=== PATIENT | female | born 1970 | race Caucasian/White ===

== ENCOUNTER 2023-01-07 19:28 | Inpatient (IN) | payer MEDICARE, OTHER, SELFPAY ==
[2023-01-07 19:49] VITALS: BP 116/81; PULSE 84; RESP 18; TEMP 36.6; O2SAT 94
[2023-01-07 20:26] VITALS: BMI 20.5
--- NOTE | 2023-01-07 20:45 | PC.NURSE ---
Pt arrived to [facility] at approximately 1917 from [facility] where she was brought for being extemely depressed and having thoughts of killing herself. It was reported by her that she had taken out $1000 beverly, obtained an Uber taxi driver supervisor to taxi driver supervisor her somewhere where she could kill herself by OD on medications. Upon admission to this facility patient states that she had intended to kill herself with her gun, however he removed the firearms so she went to a gun shop to buy another firearm but that failed because she would have to wait three days to get the firearm. She states that her notified the police and then she was brought to the ER for admission.
[2023-01-07] MEDS: metoprolol tartrate 50 mg Tablet PO (21:53)
[2023-01-07] MEDS: FUROsemide 20 mg Tablet PO (21:53)
[2023-01-07] MEDS: LORazepam 2 mg Tablet PO (21:54)
[2023-01-07 22:00] VITALS: BP 116/81; PULSE 84; RESP 18; TEMP 36.6; O2SAT 94
[2023-01-08 06:00] VITALS: BP 105/69; PULSE 97; RESP 16; O2SAT 98
[2023-01-08] MEDS: levothyroxine 100 mcg Tablet PO (06:14)
[2023-01-08] MEDS: venlafaxine ER (24HR) 75 mg Capsule PO (08:25)
[2023-01-08] MEDS: multivitamin therapeutic Tablet 1 TAB PO (08:25)
[2023-01-08] MEDS: spironolactone 25 mg Tablet PO (08:25)
[2023-01-08] MEDS: potassium chloride ER 20 mEq Tablet PO (08:25)
[2023-01-08] MEDS: thiamine 100 mg Tablet PO (08:25)
[2023-01-08] MEDS: folic acid 1 mg Tablet PO (08:25)
[2023-01-08] MEDS: FUROsemide 20 mg Tablet PO ×2 (08:28→15:39)
--- NOTE | 2023-01-08 13:51 | W.PM.NPUH&PS ---
Providers/Chief Complaint Admitting Physician: James Pruitt MD Chief Complaint: SI HPI NPU History of Present Illness Yoselin Tafoya is a 52 year old white female who presents to the [facility] in [facility] with suicidal ideation. Patient had reported having thoughts of killing herself to her . She had been admitted to the neuropsychiatric unit for further evaluation and treatment after transfer from [facility]. The patient had reported that she had many family members over including her daughter over the and she reports that she had been more stressed by her situation. She had admitted to her that she wanted to harm herself and this had prompted her to hide all of the firearms in their home. The patient had on 01/06/2023 with drawn $1000 from her account with intentions of paying a Uber straddle bug driver to drop her off in a desolate area where she could go and end her life. The patient had admitted that she had gone as far as having an Uber straddle bug driver take her to a place to purchase a gun but the patient reports that there was a 3-day waiting limit on obtaining the gun and she was unable to complete her planned. Patient was then dropped off at home and patient states that the Uber straddle bug driver had succeeding in because calling the authorities to inform them of the concern over Yoselin's behavior. The patient reports that she has had problems with chronic anxiety for several years. She has been described as having difficulty with managing her constant worry. She reports that she frequently has tension and often has difficulties with falling asleep. She reports that she has used alcohol to manage her worry for several years. She describes drinking approximately 1 bottle of wine on a daily basis for 30 years and states that she has had no change in tolerance and minimizes any history of withdrawal symptoms. She has endorsed having some adverse consequences associated with her drinking including elevated liver function test and difficulties with managing stress at home. She does endorse some feelings of hopelessness. She had minimized any history of significant alcohol withdrawal symptoms despite having daily alcohol use. She had also reported that she had obtained 9 hydrocodone pills with the attempt to use the those pills with her alcohol with the intention to take her life. The patient endorses no history of panic attacks currently but reports that she frequently finds things to worry about and feels that her worry is out of control. She has endorsed a history of depressed mood but reports that she had not been feeling suicidal until these past few days. She reports that in the past when she has been depressed she tends to feel tired all of the time and has difficulties with feeling hopeless and reports sleep continuity disruption as well. She denied any clear history of lennox. She did not endorse any history of psychosis. She denies any illicit drug use currently. Patient reports that the longest period of time she has been sober off of alcohol was 4 approximately 6 weeks when she had been initially diagnosed with congestive heart failure and been warned about the use of alcohol in order to stop use of alcohol several years ago. Inpatient psychiatric history: None reported Outpatient psychiatric history none reported in regards to psychotherapy or follow-up with a psychiatrist. She had reported no previous trials on antidepressants or antianxiety medications other than Effexor. Drug and alcohol history: She has no history of inpatient or outpatient treatment for substance use. She had endorsed a history of misuse of benzodiazepines prescribed to her in the past stating that she enjoyed the presence of those medicines and the effect it had on her body. She also reported history of opiate withdrawal after she had missed used opiates in the past to manage pain. Again she reports daily alcohol use for 30 years but states having a relatively low tolerance while reporting that she can drink a bottle of wine without any issues. Allergies: No known drug allergies Current medications: Metoprolol 25 mg twice a day, furosemide 20 mg twice a day, spironolactone 25 mg daily, aspirin 81 mg daily, lisinopril 2.5 mg daily, potassium chloride 20 mEq daily, Topamax 25 mg daily, levothyroxine 75 mcg daily, Effexor XR 75 mg daily, magnesium oxide 400 mg daily, pantoprazole 40 mg daily Medical History: Congestive heart failure, celiac disease, hypothyroidismccc Surgical history: None Family psychiatric history: None reported Social history: Patient reports that she was born in [facility] and raised by her biological parents who when the patient was 8 years old. She reports that she then lived with her mother and her maternal grandmother in [place]. She had reported some emotional trauma from managing her childhood poverty. She had stated that she had graduated high school and had previously been successful in the business industry. She reports having 2 children ages 21 and 24 with her 21-year-old son living at home and her 24-year-old daughter living outside of the home. She reports she has been for 29 years and this is her first marriage. She reports living in the [facility] and is currently on disability for her congestive heart failure and has not worked in several years. She reported no history of legal problems. Meds NPU Home Medications Medication Instructions Recorded Confirmed Last Taken Type furosemide 20 mg tablet 20 mg PO 2XD 01/07/23 01/07/23 Unknown History levothyroxine 100 mcg tablet 100 mcg PO QAM 01/07/23 01/07/23 Unknown History lisinopril 5 mg tablet (Zestril) 5 mg PO DAILY 01/07/23 01/07/23 Unknown History metoprolol tartrate 50 mg tablet 50 mg PO 2XD 01/07/23 01/07/23 Unknown History potassium chloride 20 mEq 20 meq PO DAILY 01/07/23 01/07/23 Unknown History tablet,extended release(part/cryst) (Klor-Con M) spironolactone 25 mg tablet 25 mg PO DAILY 01/07/23 01/07/23 Unknown History venlafaxine 75 mg capsule,extended 75 mg PO DAILY 01/07/23 01/07/23 Unknown History release 24 hr Allergies Allergy/AdvReac Type Severity Reaction Status Date / Time No Known Allergies Allergy Verified 01/07/23 19:57 Mental Status Exam MSE Comments: She is a casually dressed healthy white female who appeared with fair hygiene and good eye contact on interview. She was a good historian. She was alert and oriented to person place time and situation. Her speech was normal in regards to rate rhythm and prosody. There is no evidence of any abnormal involuntary motor movements tics or tremors appreciated. Her mood was described as depressed and anxious. Her affect was restricted in range and mood-congruent. Her thought process was linear logical and goal-directed. Her thought content showed evidence of suicidal ideation with a plan to use a gun. She denied any homicidal ideation. She did not appear to be responding to internal stimuli. There is no clear evidence of delusional thinking. Her insight is poor. Her judgment is limited. Her impulse control appeared poor as well. Vitals/I&O/Wt Last Vital Signs Temp 97.8 F 01/07/23 22:00 Pulse 97 01/08/23 06:00 Resp 16 01/08/23 06:00 BP 105/69 01/08/23 06:00 Pulse Ox 98 01/08/23 06:00 O2 Del Method Room Air 01/08/23 06:00 Weight last 48 hrs Weight 51.313 kg Weight 50.8 kg A&P Assessment and plan (1) Major depressive disorder, recurrent: (2) Alcohol dependence: (3) ZORAIDA (generalized anxiety disorder): Plan 52-year-old white female with a history of alcohol abuse for 30 years admitted with suicidal ideation and symptoms suggestive of generalized anxiety disorder and depression currently on Effexor XR. 1. Encourage individual, group and milieu therapy. 2. Recommend sober living treatment at the highest level of care to which the patient is willing to commit. 3. Continue q-15 minute checks for safety.? 4.? Restart current medications. 5.? Increase Effexor XR 112.5mg to target anxiety and depression 6. CIWA protocol. Involuntary Hold Information 96 Hour Hold: 96 Hour Involuntary Admission: No Attestations NPU Medical Necessity Statement*: Inpatient hospitalization is medically necessary and deemed to ?be ?the clinically appropriate intervention ?at this time.? We will monitor/initiate medications and make changes as indicated.? The patient will be in the hospital for over 2 midnights.? The patient?s likely length of stay 4-6 days. Coding Level of Care Code Acute Code for Chg Fwd Diagnoses Major depressive disorder, recurrent F33.9 Alcohol dependence F10.20 ZORAIDA (generalized anxiety disorder) F41.1
[2023-01-08 14:00] VITALS: BP 109/76; PULSE 144; RESP 16; TEMP 36.6; O2SAT 96
[2023-01-08] MEDS: metoprolol tartrate 50 mg Tablet PO (18:06)
[2023-01-08] MEDS: trazodone 50 mg Tablet PO (21:03)
[2023-01-08 22:00] VITALS: BP 109/80; PULSE 83; RESP 18; TEMP 36.4; O2SAT 96
[2023-01-09 06:00] VITALS: BP 91/56; PULSE 96; RESP 16; O2SAT 94
[2023-01-09] MEDS: levothyroxine 100 mcg Tablet PO (06:08)
--- NOTE | 2023-01-09 07:44 | PC.NURSE ---
PT REPORTS NO BM SINCE MONDAY NEW ORDERS RECEIVED TO START SENNA S 1 TAB PO BID PRN CONSTIPATION. PT EDUCATED ON MEDICATIONS. VERBALIZED UNDERSTANDING.
[2023-01-09] MEDS: spironolactone 25 mg Tablet PO (08:22)
[2023-01-09] MEDS: multivitamin therapeutic Tablet 1 TAB PO (08:22)
[2023-01-09] MEDS: folic acid 1 mg Tablet PO (08:22)
[2023-01-09] MEDS: metoprolol tartrate 50 mg Tablet PO (08:22)
[2023-01-09] MEDS: venlafaxine ER (24HR) 37.5 mg Capsule 112.5 MG PO (08:22)
[2023-01-09] MEDS: thiamine 100 mg Tablet PO (08:22)
[2023-01-09] MEDS: lisinopril 5 mg Tablet PO (08:22)
[2023-01-09] MEDS: potassium chloride ER 20 mEq Tablet PO (08:22)
[2023-01-09] MEDS: hyDROXYzine 25 mg Capsule 50 MG PO (08:26)
[2023-01-09] MEDS: sennosides-docusate Tablet 1 TAB PO (08:26)
[2023-01-09] MEDS: ibuprofen 600 mg Tablet PO (08:27)
--- NOTE | 2023-01-09 08:51 | PC.NURSE ---
PT UP AT [facility] REQUESTING BOX TO BRUSH HER TEETH. BOX WAS GIVEN TO PT REQUESTED. PT DENIES PAIN, DENIES SI/HI AND AVH AT THIS TIME. REPORTS ANXIETY 5/10 AND DEPRESSION 3/10. PT WAS ADMINISTERED VISTARIL 50 MG ORDERED FOR ANXIETY. PT REPORTS SHE HAS NOT HAD A BM FOR 5 DAYS, SENNA S 1 TAB WAS GIVEN ORDERED. PT EDUCATED TO LET STAFF KNOW WHEN SHE HAS A BM, OR IF SHE DOES NOT SHE CAN TAKE ANOTHER SENNA S. PT VERBALIZED UNDERSTANDING. PT SCORED 0 ON CIWA, PT DENIES ALL SYMPTOMS OF ALCOHOL WITHDRAW EXCEPT FOR ANXIETY. ALL QUESTIONS WERE ANSWERED AND SUPPORT WAS VOICED.
[2023-01-09] MEDS: FUROsemide 20 mg Tablet PO ×2 (10:03→15:45)
[2023-01-09 14:00] VITALS: BP 90/58; PULSE 79; RESP 16; TEMP 36.4; O2SAT 96
--- NOTE | 2023-01-09 18:01 | W.PM.NPUPNS ---
Subjective NPU Subjective: patient is a 52-year-old white female with a history of alcohol dependence and generalized anxiety disorder along with major depressive disorder admitted with suicidal ideation with a plan to use a gun. Patient had reported continued depressed mood at this time. She had stated that she had been acutely stressed over the holidays and stated that she continued to struggle with excessive worry. She had reported that she had needed help for managing her depression and low self-esteem. She had endorsed periods of hopelessness and stated that she had difficulties with coping with her anxiety. She reported that she may have harmed herself if she had had access to a gun as she had stated that she had had an Uber jeep driver prepared to drive her to an remote area in order to shoot herself with a gun. The patient had reported some cravings for alcohol. She reports that the longest period of sobriety from her alcohol use was 6 months when she had been diagnosed with congestive heart failure. She had reported that she had minimized her alcohol consumption to her physicians in the past Mental Status Exam MSE Comments: She is a casually dressed healthy white female who appeared with fair hygiene and good eye contact on interview. She was a good historian. She was alert and oriented to person place time and situation. Her speech was normal in regards to rate rhythm and prosody. There is no evidence of any abnormal involuntary motor movements tics or tremors appreciated. Her mood Was described as depressed. Her affect Remained restricted in range and mood-congruent. Her thought process was linear logical and goal-directed. Her thought content showed evidence of suicidal ideation with a plan to use a gun. She denied any homicidal ideation. She did not appear to be responding to internal stimuli. There is no clear evidence of delusional thinking. Her insight is poor. Her judgment is limited. Her impulse control appeared poor as well. Vitals/I&O/Wt Last Vital Signs Temp 97.5 F L 01/09/23 14:00 Pulse 79 01/09/23 14:00 Resp 16 01/09/23 14:00 BP 90/58 01/09/23 14:00 Pulse Ox 96 01/09/23 14:00 O2 Del Method Room Air 01/08/23 14:00 Weight last 48 hrs Weight 51.313 kg Weight 50.8 kg A&P Assessment and plan (1) Major depressive disorder, recurrent: (2) Alcohol dependence: (3) ZORAIDA (generalized anxiety disorder): Plan 52-year-old white female with a history of alcohol abuse for 30 years admitted with suicidal ideation and symptoms suggestive of generalized anxiety disorder and depression currently on Effexor XR. 1. Encourage individual, group and milieu therapy. 2. Recommend sober living treatment at the highest level of care to which the patient is willing to commit. 3. Continue q-15 minute checks for safety.? 4.? Restart current medications. 5.? Increase Effexor XR 150mg to target anxiety and depression. Add Naltrexone oral 50mg to target alcohol cravings with plan to consider Vivitrol IM to target alcohol dependence. 6. CILA protocol. Involuntary Hold Information 96 Hour Hold: 96 Hour Involuntary Admission: No Attestations NPU Medical Necessity Statement*: Inpatient hospitalization is medically necessary and deemed to ?be ?the clinically appropriate intervention ?at this time.? We will monitor/initiate medications and make changes as indicated.?The patient?s likely length of stay 4-6 days. Coding Level of Care Code Acute Code for [facility] Fwd Diagnoses Major depressive disorder, recurrent F33.9 Alcohol dependence F10.20 ZORAIDA (generalized anxiety disorder) F41.1
[2023-01-09] MEDS: trazodone 50 mg Tablet PO (20:07)
[2023-01-09 20:37] VITALS: BP 89/55; PULSE 69; RESP 17; TEMP 36.3; O2SAT 98
[2023-01-10] MEDS: folic acid 1 mg Tablet PO (09:05)
[2023-01-10] MEDS: FUROsemide 20 mg Tablet PO ×2 (09:05→15:41)
[2023-01-10] MEDS: naltrexone hcl 50 mg Tablet PO (09:05)
[2023-01-10] MEDS: venlafaxine ER (24HR) 150 mg Capsule PO (09:06)
[2023-01-10] MEDS: spironolactone 25 mg Tablet PO (09:06)
[2023-01-10] MEDS: multivitamin therapeutic Tablet 1 TAB PO (09:06)
[2023-01-10] MEDS: thiamine 100 mg Tablet PO (09:06)
[2023-01-10] MEDS: metoprolol tartrate 50 mg Tablet PO (09:06)
[2023-01-10] MEDS: potassium chloride ER 20 mEq Tablet PO (09:07)
[2023-01-10] MEDS: lisinopril 5 mg Tablet PO (09:07)
[2023-01-10 14:00] VITALS: BP 87/56; PULSE 71; RESP 20; TEMP 36.4; O2SAT 97
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
[2023-01-10] MEDS: hyDROXYzine 25 mg Capsule 50 MG PO (16:51)
--- NOTE | 2023-01-10 20:08 | P.NPUPN_ITS ---
Subjective NPU Subjective: patient is a 52-year-old white female with a history of alcohol dependence and generalized anxiety disorder along with major depressive disorder admitted with suicidal ideation with a plan to use a gun. The patient had reported that she was feeling better. She reported no side effects from the Effexor increase. She had reported hope of receiving substance abuse treatment including naltrexone to help with alcohol related cravings. Patient was quiet but was able to attend groups. She had reported that she continued to hooker chronic worry and stated that she had been battling depression for years. She had stated that she felt like she needed to make changes in her life regarding her alcohol use. She reported no history of psychotherapy either. She denied any suicidal thoughts currently. Mental Status Exam MSE Comments: She is a casually dressed healthy white female who appeared with fair hygiene and good eye contact on interview. She was a good historian. She was alert and oriented to person place time and situation. Her speech was normal in regards to rate rhythm and prosody. There is no evidence of any abnormal involuntary motor movements tics or tremors appreciated. Her mood Was described as better. Her affect was less restricted today. Her thought process was linear logical and goal-directed. Her thought content showed no evidence of suicidal ideation today. She denied any homicidal ideation. She did not appear to be responding to internal stimuli. There is no clear evidence of delusional thinking. Her insight is improving. Her judgment is limited. Her impulse control appeared fair as well. Vitals/I&O/Wt Last Vital Signs Temp 97.5 F L 01/10/23 14:00 Pulse 71 01/10/23 14:00 Resp 20 H 01/10/23 14:00 BP 87/56 01/10/23 14:00 Pulse Ox 97 01/10/23 14:00 O2 Del Method Room Air 01/10/23 14:00 A&P Assessment and plan (1) Major depressive disorder, recurrent: (2) Alcohol dependence: (3) ZORAIDA (generalized anxiety disorder): Plan 52-year-old white female with a history of alcohol abuse for 30 years admitted with suicidal ideation and symptoms suggestive of generalized anxiety disorder and depression currently on Effexor XR. 1. Encourage individual, group and milieu therapy. 2. Recommend sober living treatment at the highest level of care to which the patient is willing to commit. 3. Continue q-15 minute checks for safety.? 4.? Restart current medications. 5.? Continue Effexor XR 150mg to target anxiety and depression. Add Naltrexone oral 50mg to target alcohol cravings with plan to consider Vivitrol IM to target alcohol dependence. 6. [facility] protocol. Involuntary Hold Information 96 Hour Hold: 96 Hour Involuntary Admission: No Attestations NPU Medical Necessity Statement*: Inpatient hospitalization is medically necessary and deemed to ?be ?the clinically appropriate intervention ?at this time.? We will monitor/initiate medications and make changes as indicated.?The patient?s likely length of stay 3-4 days. Coding Level of Care Code Acute Code for Chg Fwd Diagnoses Major depressive disorder, recurrent F33.9 Alcohol dependence F10.20 ZORAIDA (generalized anxiety disorder) F41.1
[2023-01-10] MEDS: trazodone 50 mg Tablet PO ×2 (20:14→21:47)
[2023-01-10 20:37] VITALS: BP 88/57; PULSE 72; RESP 18; TEMP 36.4; O2SAT 98
[2023-01-11 06:00] VITALS: BP 92/61; PULSE 92; RESP 16; O2SAT 96
[2023-01-11] MEDS: levothyroxine 100 mcg Tablet PO (06:30)
[2023-01-11] MEDS: spironolactone 25 mg Tablet PO (08:48)
[2023-01-11] MEDS: thiamine 100 mg Tablet PO (08:48)
[2023-01-11] MEDS: FUROsemide 20 mg Tablet PO ×2 (08:48→16:40)
[2023-01-11] MEDS: folic acid 1 mg Tablet PO (08:48)
[2023-01-11] MEDS: naltrexone hcl 50 mg Tablet PO (08:48)
[2023-01-11] MEDS: venlafaxine ER (24HR) 150 mg Capsule PO (08:48)
[2023-01-11] MEDS: potassium chloride ER 20 mEq Tablet PO (08:48)
[2023-01-11] MEDS: metoprolol tartrate 50 mg Tablet PO ×2 (08:48→20:23)
[2023-01-11] MEDS: multivitamin therapeutic Tablet 1 TAB PO (08:48)
[2023-01-11] MEDS: lisinopril 5 mg Tablet PO (08:48)
[2023-01-11 08:50] VITALS: BP 109/73
--- NOTE | 2023-01-11 16:25 | W.PM.NPUPNS ---
Subjective NPU Subjective: Patient is a 52-year-old white female with a history of alcohol dependence and generalized anxiety disorder along with major depressive disorder admitted with suicidal ideation with a plan to use a gun. Patient reported that she was no longer having suicidal thoughts. She had stated that she had no side effects from the naltrexone. She reports her anxiety appeared better with less worry noted with the increase in Effexor up to 150 mg daily. She was able to contribute in groups. She reported that her was a recovering alcoholic and had complemented her on her doing the right thing. She had reported having never received any form of treatment for alcohol abuse with no history of attending Alcoholics Anonymous, individual therapy, or any group therapy. She was motivated to discuss her issues regarding her drinking with her primary care physician as she stated that she had an echocardiogram that was scheduled annually that was scheduled on Monday. She reported no cravings on alcohol at this time. Mental Status Exam MSE Comments: She is a casually dressed healthy white female who appeared with fair hygiene and good eye contact on interview. She was a good historian. She was alert and oriented to person,place ,time, and situation. Her speech was normal in regards to rate rhythm and prosody. There is no evidence of any abnormal involuntary motor movements tics or tremors appreciated. There was mild psychomotor retardation. Her mood was described as better. Her affect was less restricted today. Her thought process was linear logical and goal-directed. Her thought content showed no evidence of suicidal ideation today. She denied any homicidal ideation. She did not appear to be responding to internal stimuli. There is no clear evidence of delusional thinking. Her insight is improving. Her judgment is limited. Her impulse control appeared fair as well. Vitals/I&O/Wt Last Vital Signs Temp 97.6 F 01/10/23 20:37 Pulse 92 01/11/23 06:00 Resp 16 01/11/23 06:00 BP 109/73 01/11/23 08:50 Pulse Ox 96 01/11/23 06:00 O2 Del Method Room Air 01/11/23 06:00 A&P Assessment and plan (1) Major depressive disorder, recurrent: (2) Alcohol dependence: (3) ZORAIDA (generalized anxiety disorder): Plan 52-year-old white female with a history of alcohol abuse for 30 years admitted with suicidal ideation and symptoms suggestive of generalized anxiety disorder and depression currently on Effexor XR. 1. Encourage individual, group and milieu therapy. 2. Recommend sober living treatment at the highest level of care to which the patient is willing to commit. 3. Continue q-15 minute checks for safety.? 4.? Restart current medications. 5.? Continue Effexor XR 150mg to target anxiety and depression. Continue Naltrexone oral 50mg to target alcohol cravings with plan to consider Vivitrol IM to target alcohol dependence. Involuntary Hold Information 96 Hour Hold: 96 Hour Involuntary Admission: No Attestations NPU Medical Necessity Statement*: Inpatient hospitalization is medically necessary and deemed to ?be ?the clinically appropriate intervention ?at this time.? We will monitor/initiate medications and make changes as indicated.?The patient?s likely length of stay 1-2 days. Coding Level of Care Code Acute Code for Chg Fwd Diagnoses Major depressive disorder, recurrent F33.9 Alcohol dependence F10.20 ZORAIDA (generalized anxiety disorder) F41.1
[2023-01-11 20:18] VITALS: BP 96/62; PULSE 79; RESP 16; TEMP 36.7; O2SAT 96
[2023-01-11] MEDS: trazodone 50 mg Tablet PO ×2 (20:23→21:42)
[2023-01-11] MEDS: hyDROXYzine 25 mg Capsule 50 MG PO (20:23)
--- NOTE | 2023-01-11 21:02 | PC.NURSE ---
IN DAY ROOM CONVERSING WITH STAFF. DENIES SI/HI AND AVH AT THIS TIME. PT DENIES PAIN. REPORTS ANXIETY 6/10 AND DEPRESSION 0/10. VISTARIL 50 MG WAS GIVEN ORDERED, TRAZODONE 50 MG WAS GIVEN FOR INSOMNIA ORDERED. PT REPORTS SHE IS TO GET A VIVITROL SHOT IN THE AM TO HELP WITH HER CRAVINGS OF ALCOHOL AND IS HOPEFUL SHE WILL GET INTO REHAB. PT IS NOTED TO BE GOAL ORIENTED TOWARDS HER RECOVERY AND IS MAKING PLANS TO ATTEND AA GET A SPONSER FOR ADDED SUPPORT. ALL QUESTIONS ANSWERED AND SUPPORT WAS VOICED.
--- NOTE | 2023-01-12 02:08 | PC.NURSE ---
PT REQUESTED A SECOND DOSE OF TRAZODONE ONE HOUR AFTER FIRST DOSE DUE TO NOT BEING ABLE TO SLEEP AT ALL. PT HAS BEEN RESTING WITH EYES CLOSED SINCE APPROXIMATELY 2230 LAST NIGHT. MEDICATIONS DEEMED EFFECTIVE.
[2023-01-12 06:00] VITALS: BP 84/59; PULSE 69; RESP 16; O2SAT 97
[2023-01-12] MEDS: levothyroxine 100 mcg Tablet PO (06:50)
[2023-01-12] MEDS: spironolactone 25 mg Tablet PO (08:17)
[2023-01-12] MEDS: naltrexone hcl 50 mg Tablet PO (08:17)
[2023-01-12] MEDS: folic acid 1 mg Tablet PO (08:17)
[2023-01-12] MEDS: FUROsemide 20 mg Tablet PO ×2 (08:17→16:24)
[2023-01-12] MEDS: venlafaxine ER (24HR) 150 mg Capsule PO (08:17)
[2023-01-12] MEDS: thiamine 100 mg Tablet PO (08:17)
[2023-01-12] MEDS: multivitamin therapeutic Tablet 1 TAB PO (08:17)
[2023-01-12] MEDS: potassium chloride ER 20 mEq Tablet PO (08:17)
--- NOTE | 2023-01-12 08:32 | PC.NURSE ---
held pt metoprolol and lisinopril this am do to bp 91/61.
[2023-01-12 14:00] VITALS: BP 100/66; PULSE 77; RESP 14; TEMP 36.7; O2SAT 96
[2023-01-12] MEDS: hyDROXYzine 25 mg Capsule 50 MG PO (15:18)
--- NOTE | 2023-01-12 16:34 | DCPLANNER ---
Imm was printed and given to pt and copy placed in file.
--- NOTE | 2023-01-12 17:02 | P.NPUDS_ITS ---
Diagnoses at Discharge Discharge Diagnosis (1) Major depressive disorder, recurrent: Status: Acute (2) Alcohol dependence: Status: Acute (3) ZORAIDA (generalized anxiety disorder): Status: Acute Reason for Visit Reason for Visit: SI Brief History: History of Present Illness Yoselin Tafoya is a 52 year old white female who presents to the [facility] in [facility] with suicidal ideation. Patient had reported having thoughts of killing herself to her . She had been admit alfredito to the neuropsychiatric unit for further evaluation and treatment after transfer from [facility]. The patient had reported that she had many family members over including her daughter over the and she reports that she had been more stressed by her situation. She had admitted to her that she wanted to harm herself and this had prompted her to hide all of the firearms in their home. The patient had on 01/06/2023 with drawn $1000 from her account with intentions of paying a [employer] city bus driver to drop her off in a desolate area where she could go and end her life. The patient had admitted that she had gone as far as having an [employer] city bus driver take her to a place to purchase a gun but the patient reports that there was a 3-day waiting limit on obtaining the gun and she was unable to complete her planned. Patient was then dropped off at home and patient states that the [employer] city bus driver had succeeding in because calling the authorities to inform them of the concern over Yoselin's behavior. The patient reports that she has had problems with chronic anxiety for several years. She has been described as having difficulty with managing her constant worry. She reports that she frequently has tension and often has difficulties with falling asleep. She reports that she has used alcohol to manage her worry for several years. She describes drinking approximately 1 bottle of wine on a daily basis for 30 years and states that she has had no change in tolerance and minimizes any history of withdrawal symptoms. She has endorsed having some adverse consequences associated with her drinking including elevated liver function test and difficulties with managing stress at home. She does endorse some feelings of hopelessness. She had minimized any history of significant alcohol withdrawal symptoms despite having daily alcohol use. She had also reported that she had obtained 9 hydrocodone pills with the attempt to use the those pills with her alcohol with the intention to take her life. The patient endorses no history of panic attacks currently but reports that she frequently finds things to worry about and feels that her worry is out of control. She has endorsed a history of depressed mood but reports that she had not been feeling suicidal until these past few days. She reports that in the past when she has been depressed she tends to feel tired all of the time and has difficulties with feeling hopeless and reports sleep continuity disruption as well. She denied any clear history of lennox. She did not endorse any history of psychosis. She denies any illicit drug use currently. Patient reports that the longest period of time she has been sober off of alcohol was 4 approximately 6 weeks when she had been initially diagnosed with congestive heart failure and been warned about the use of alcohol in order to stop use of alcohol several years ago. Inpatient psychiatric history: None reported Outpatient psychiatric history none reported in regards to psychotherapy or follow-up with a psychiatrist. She had reported no previous trials on antidepressants or antianxiety medications other than Effexor. Drug and alcohol history: She has no history of inpatient or outpatient treatment for substance use. She had endorsed a history of misuse of benzodiazepines prescribed to her in the past stating that she enjoyed the pres ence of those medicines and the effect it had on her body. She also reported history of opiate withdrawal after she had missed used opiates in the past to manage pain. Again she reports daily alcohol use for 30 years but states having a relatively low tolerance while reporting that she can drink a bottle of wine without any issues. Allergies: No known drug allergies Current medications: Metoprolol 25 mg twice a day, furosemide 20 mg twice a day, spironolactone 25 mg daily, aspirin 81 mg daily, lisinopril 2.5 mg daily, potassium chloride 20 mEq daily, Topamax 25 mg daily, levothyroxine 75 mcg daily, Effexor XR 75 mg daily, magnesium oxide 400 mg daily, pantoprazole 40 mg daily Medical History: Congestive heart failure, celiac disease, hypothyroidismccc Surgical history: None Family psychiatric history: None reported Social history: Patient reports that she was born in [facility] and raised by her biological parents who when the patient was 8 years old. She reports that she then lived with her mother and her maternal grandmother in [facility]. She had reported some emotional trauma from managing her childhood poverty. She had stated that she had graduated high school and had previously been successful in the business industry. She reports having 2 children ages 21 and 24 with her 21-year-old son living at home and her 24-year-old daughter living outside of the home. She reports she has been for 29 years and this is her first marriage. She reports living in the [facility] and is currently on disability for her congestive heart failure and has not worked in several years. She reported no history of legal problems. Hospital Course Hospital Course She slowly acclimated to the individual, group and milieu therapies provided. She presented with significant depression and alcohol addiction. She was on Effexor Exar 75 mg when she presented that was titrated to 112.5 mg and then ultimately to 150 mg p.o. daily. Naltrexone 50 mg p.o. daily was added for her drinking. She worked with the social work team for appropriate aftercare appointments and resources. She showed significant improvement and was able to contract for safety outside of the hospital prior to discharge. At the outside hospital, patient had routine laboratory studies which were within normal limits except for few outliers. Additionally there was a general medical evaluation which was also within normal limits and revealed no new acute processes. At the time of discharge, she denied psychosis or lethality. Mood and anxiety were well managed. Patient endorsed a plan to avoid all drugs of abuse and follow-up with the aftercare recommendations of the treatment team. Patient was evaluated and deemed to be absent credible lethality, and had achieved the maximum benefit from an inpatient hospitalization, so was discharged. Involuntary Hold Information 96 Hour Hold: 96 Hour Involuntary Admission: No Mental Status Exam MSE Comments: She is a casually dressed healthy white female who appeared with fair hygiene and good eye contact on interview. She was a good historian. She was alert and oriented to person,place ,time, and situation. Her speech was normal in regards to rate rhythm and prosody. There is no evidence of any abnormal involuntary motor movements tics or tremors appreciated. There was mild psychomotor retardation. Her mood was described as better. Her affect was less restricted today. Her thought process was linear logical and goal-directed. Her thought content showed no evidence of suicidal ideation today. She denied any homicidal ideation. She did not appear to be responding to internal stimuli. There is no clear evidence of delusional thinking. Her insight is improving. Her judgment is limited. Her impulse control appeared fair as well. Discharge Data Vitals: Last Vital Signs Temp 98.1 F 01/12/23 14:00 Pulse 77 01/12/23 14:00 Resp 14 01/12/23 14:00 BP 100/66 01/12/23 14:00 Pulse Ox 96 01/12/23 14:00 O2 Del Method Room Air 01/12/23 06:00 Discharge Plan Discharge Patient Disposition: Home Condition: Stable Prescriptions: New venlafaxine 150 mg Capsule,Extended Release 24hr 150 mg PO DAILY 30 Days Qty: 30 1RF trazodone 50 mg Tablet 50 mg PO BEDTIME PRN (Reason: Sleep) 30 Days Qty: 30 1RF Vitamin B-1 (mononitrate) 100 mg Tablet 100 mg PO DAILY 30 Days Qty: 30 1RF naltrexone 50 mg Tablet 50 mg PO DAILY 30 Days Qty: 30 1RF Continued furosemide 20 mg tablet 20 mg PO 2XD Klor-Con M20 20 mEq tablet,ER particles/crystals 20 meq PO DAILY Zestril 5 mg tablet 5 mg PO DAILY metoprolol tartrate 50 mg tablet 50 mg PO 2XD spironolactone 25 mg tablet 25 mg PO DAILY levothyroxine 100 mcg tablet 100 mcg PO QAM Discontinued venlafaxine 75 mg capsule,extended release 24hr 75 mg PO DAILY Discharge Orders: Discharge Order (Routine); Ordered 01/12/23 Ordered By: Carlos Saldivar Referrals: [facility] [Other] - 7-10 days (Open Access M-F 8am-4pm Bring photo ID, proof of address, proof on insurance, social security card, medication, proof of income and $25 copay. They offer sliding scale payment if insurance dont cover. ) Rubens Garcia M.D. - [facility] [Other] - 01/24/23 10:30 am (Follow up) [facility] - [facility] [Other] (Call to follow up with referral. ) Discharge Diet: Regular Discharge Activity: Resume usual activity Patient Instructions: Trazodone (By mouth) (Desyrel, Desyrel Dividose, Oleptro, Trazamine), Venlafaxine (By mouth) (Effexor, Effexor XR), Naltrexone (By mouth) (Revia), Depression (DC), Anxiety (DC), Alcohol Dependence (DC), Opioid Safety Discharge Attestations NPU Time Spent in Discharge Care*: less than 30 min Specific Discharge Activities: Specific discharge activities: educating patient, discussing with telehealth case manager/social workers/dc planners, documenting/other paperwork and evaluating patient/reviewing data Coding Level of Care Code Acute Chg DC note Diagnoses Major depressive disorder, recurrent F33.9 Alcohol dependence F10.20 ZORAIDA (generalized anxiety disorder) F41.1
[2023-01-12 17:05] VITALS: BP 100/66; PULSE 77; RESP 14; TEMP 36.7; O2SAT 96
== END 2023-01-12 17:22 | disposition home or self-care (01) | DRG 885 ==
PROVIDERS: Admitting Provider Psychiatry & Neurology Psychiatry; Visit Provider Psychiatry & Neurology Psychiatry
DX: F33.9 Major depressive disorder, recurrent, unspecified (principal); R45.851 Suicidal ideations; I50.9 Heart failure, unspecified; E03.9 Hypothyroidism, unspecified; K90.0 Celiac disease; F41.1 Generalized anxiety disorder; F10.20 Alcohol dependence, uncomplicated
CPT/HCPCS: 97150; 97165